=== PATIENT | male | born 1950 | race Caucasian/White ===

== ENCOUNTER → 2016-10-11 | Outpatient (CLI) | payer BC | END | disposition short-term general hospital (02) | LOC: CLORTH 07:10 | DX: M17.12 Unilateral primary osteoarthritis, left knee (principal); M21.162 Varus deformity, not elsewhere classified, left knee ==

== ENCOUNTER → 2016-11-22 | Outpatient (CLI) | payer BC, MEDICARE | END | disposition short-term general hospital (02) | LOC: CLORTH 10-25 02:08 | DX: Z47.1 Aftercare following joint replacement surgery (principal); Z96.652 Presence of left artificial knee joint ==